=== PATIENT | female | born 1980 | race Caucasian/White ===

== ENCOUNTER 2021-03-26 02:35 | Day surgery (SDC) | payer BC, SELFPAY ==
[2021-03-18 12:25] VITALS: BMI 31.4
--- NOTE | 2021-03-18 12:39 | PC.NURSE ---
Report to the Outpatient Waiting Room, entrance under the green pavilion located off [facility], at time 1300 on date 03/26/21. OR Time: 1500. - You and your visitor will be asked a series of questions to screen for COVID 19 for your protection. - A mask is required within the hospital. - Only one visitor is allowed at this time. Patient visitors will be guided where to wait when not with patient. Preoperative COVID Testing Requirements: No COVID Test needed if: (proof is required; if not received patient will have Rapid Test prior to entry) - Patient has received COVID Vaccine at least 14 days prior to procedure date or - Patient has positive COVID test result within last 90 days of surgery date. COVID Test needed if above criteria is not met If not COVID vaccinated a COVID test must be conducted within 72 hours of surgery and patient is asked to isolate self from time of testing until procedure. You will go to the [facility] for your COVID testing. The [facility] is located at the corner of [address] [facility]. You will only be called if COVID results are positive and your surgeon may reschedule your elective surgery date. Patients may have clear liquids (water, carbonated beverages, clear teas, apple juice) until 3 hours prior to surgery with a maximum of 20 ounces. - No food from midnight until time of surgery - Infants may have breast milk until 4 hours before surgery, infant formula 6 hours prior to surgery. - Children will be allowed to drink immediately following surgery. If applicable, please bring a bottle or sippy cup to assist with drinking. Juice, water, soda, and popsicles are readily available. For infants on formula, please bring formula the day of surgery. Pacifiers are allowed. Take the following medications with a SIP of water the morning of surgery: BUPROPION, ESCITALOPRAM, XANAX (IF NEEDED) Medications to discontinue per physician: VITAMINS/SUPPLEMENTS Date to take last dose: 03/22/21 Please no make-up, nail spanish, hairspray, perfume, deodorant, or body powder the day of surgery. No jewelry (including any body piercings) or valuables the day of surgery, leave them at home. Please take a shower or bath the night before, or the morning of, surgery with an antibacterial soap. Wear comfortable, loose fitting clothing. Children are encouraged to wear pajamas. - Jewelry must be removed prior to entering the operating room. Rings and piercings that are not removed may be cut off. - The hospital will not accept responsibility for valuables. - Please leave all valuables, including medications, at home the day of surgery. If you are going home after surgery, a licensed truck driver must drive you home. - NO public transportation without another adult. - We recommend that an adult stay with you for 24 hours following discharge. - We also recommend that you do not drive, make important decision, drink alcoholic beverages, or take any drugs that were not prescribed by your health care provider for at least 24 hours after your discharge time. For Pediatric surgeries, we recommend two adults accompany the child home (only one inside the building at this time). Follow any additional instructions given to you from your surgeon. Telephone instructions given to FUNMI PIZANO and asked if any additional questions and then verbalized understanding. Patient advised to call surgeon office or pre surgery nurse liaison [phone] if any additional questions.
[2021-03-26] VITALS (10 sets, daily range): BP systolic 88–121; BP diastolic 39–70; PULSE 71–101; RESP 16–26; TEMP 37.2–37.6; O2SAT 95–100
[2021-03-26] MEDS: ACETAMINOPHEN 500 MG TABLET 1000 MG PO (13:49)
[2021-03-26] MEDS: LACTATED RINGERS 1,000 ML 30 ML IV CONT ×2 (14:12→15:39)
[2021-03-26] MEDS: KETOROLAC 15 MG/ML VIAL (*BKC) IV PUSH (14:13)
--- NOTE | 2021-03-26 14:19 | P.PNAN_ITS ---
Anes - Initial Pre Proc Eval Procedure: Operation Date: 03/26/21 14:45 Proposed Procedures p Laparoscopic Left Ovarian Oophorectomy with Bilateral Salpingectomy - Ashwin Burgos MD Date/Time: 03/26/21 14:19 Surgeon: Ashwin Burgos MD Pre Op Diagnosis: features of ovarian cancer, and ovarian cyst Patient Data Age: 41 Gender: F Height: 1.7 m Weight: 91.1 kg Last Vital Signs Temp 37.6 C H 03/26/21 14:15 Pulse 90 03/26/21 14:15 Resp 16 03/26/21 14:15 BP 121/70 03/26/21 14:15 Pulse Ox 100 03/26/21 14:15 Allergies Allergy/AdvReac Type Severity Reaction Status Date / Time zolpidem [From Ambien] Allergy Unknown Hallucinati Verified 03/26/21 13:44 ng propoxyphene AdvReac Unknown Vomiting Verified 03/26/21 13:44 [From Darvocet-N] Home Medications Medication Instructions Recorded Confirmed Type alprazolam 0.25 mg PO DAILY PRN 03/18/21 03/26/21 History bupropion HCl 150 mg PO DAILY 03/18/21 03/26/21 History escitalopram oxalate 20 mg PO DAILY 03/18/21 03/26/21 History multivitamin 1 tablet PO DAILY 03/18/21 03/26/21 History omega-3 fatty acids [Fish Oil] 1,000 mg PO DAILY 03/18/21 03/26/21 History Patient hx anesthesia problems: none Family hx anesthesia problems: none Results Review: All pre-operative results and documents have been reviewed as part of the pre-operative evaluation. [facility] Past Medical History Medical History (Updated 03/26/21 @ 14:22 by Julio C Rockwell MD) Depression Obesity Surgical History Surgical History (Updated 03/26/21 @ 14:22 by Julio C Rockwell MD) History of lumbar surgery Social History Social History Smoking packs per day: 0.5 Smoking cigarettes per day: 10.0 Years smoked: 7 Smoking pack-years: 3.50 Smoking status: Former smoker Tobacco type: cigarettes Smoking end date: 04/11/10 Alcohol intake: current Drinks per week: 1 Substance use: never Substance use type: does not use Living arrangements: with family Spiritual care concerns: No Anes - Eval Final PreProcedure Day of Procedure 03/26/21 14:19 Patient weight: obese Heart: regular rate and rhythm Lungs: clear to auscultation Airway: Mallampati scale class II Neurological: alert and oriented Last oral intake: >/= 8 hours ASA classification: II Emergent: no Anesthetic plan: proceed Anesthesia type and monitoring: general ETT and standard monitoring Results Review: All pre-operative results and documents have been reviewed as part of the pre-operative evaluation. Informed Consent: The patient's anesthetic plan and its attendant risks and benefits were discussed with the patient/family/POA. Questions were solicited and answers provided to the satisfaction of the patient/family/POA.
--- NOTE | 2021-03-26 14:26 | WPDHPUPDATE1 ---
History and Physical Update Update Date/Time: 03/26/21 14:26 History and Physical has been reviewed, including an updated exam of the patient. There are NO changes in the patient's condition. Risks, benefits, and alternatives have been discussed and questions answered. Patient agrees to proceed with procedure.
--- NOTE | 2021-03-26 15:30 | W.PM.PROC2 ---
Procedure Note - Detailed Date of Procedure 03/26/21 Pre-op Diagnosis features of ovarian cancer, and ovarian cyst Post-op Diagnosis same Procedure Performed Laparoscopic left oophorectomy and bilateral salpingectomy. Surgeon Ashwin Burgos MD Anesthesia general Indications Large left ovarian cyst, female sterilization Findings Large left ovarian cyst, otherwise normal pelvis with normal-appearing fallopian tubes uterus and posterior cul-de-sac Description of Procedure The patient was taken to the operating room. She was prepped and draped in the dorsal lithotomy position after induction general anesthesia. A 5 mm incision was made with a scalpel on the abdominal skin in the left upper quadrant of the abdomen. A 5 mm trocar was inserted into the intra-abdominal cavity under direct visualization the scope. In the same fashion an 11mm left lower quadrant trocar was inserted and a 5 mm infraumbilical trocar was inserted. The infundibulopelvic ligament on the left was isolated. It was cauterized and transected with LigaSure cautery. Moving along left pelvic sidewall the mesosalpinx was cauterized and transected lateral to the ovary and fallopian tube. In a stepwise fashion the mesosalpinx was cauterized transected around the ovary and fallopian tube to the cornual region the uterus. The suspensory ligament the ovaries cauterized transected as well. The fallopian tube at the uterine cornua was then transected and cauterized with LigaSure. The left tube and ovary was free and placed in endobag. It was taken out the left lower quadrant trocar site without leaking any of the cyst fluid. The right fallopian tube was removed. The mesosalpinx the round the fallopian tube was cauterized transected in a stepwise fashion toward the uterine cornua. There the tube was transected and cauterized with LigaSure cautery. The tubal segment the left lower quadrant trocar site. The pelvis was hemostatic. The pelvis was irrigated. The pneumoperitoneum was reduced. The trocars were removed. Skin was closed with subcuticular 4 micro. The patient's incisions were covered with Dermabond. She was taken recovery room in stable condition. Sponge lap and needle counts were correct x2. Estimated Blood Loss 10 Drains No Packing No Pathology yes Complications No immediate complications Condition stable Disposition same day
[2021-03-26] MEDS: fentaNYL CITRATE INJ (*CRX) 100 MCG/2 ML VIAL 25 MCG IV PUSH ×3 (16:02→16:30)
[2021-03-26] MEDS: ONDANSETRON INJ 4 MG/2 ML VIAL IV PUSH (16:11)
[2021-03-26] MEDS: oxyCODONE HCL (*CRX) 5 MG TAB IR PO (17:00)
== END 2021-03-26 17:52 | disposition home or self-care (01) ==
PROVIDERS: PCP Family Medicine; Visit Provider Obstetrics & Gynecology
PROC: (CPT 49320; principal; 2021-03-26 14:45)
DX: Z30.2 Encounter for sterilization (principal); D27.1 Benign neoplasm of left ovary; N73.6 Female pelvic peritoneal adhesions (postinfective); F32.9 Major depressive disorder, single episode, unspecified; E66.9 Obesity, unspecified; Z68.31 Body mass index [BMI] 31.0-31.9, adult; Z87.891 Personal history of nicotine dependence
CPT/HCPCS: 58661; 88302; 88305; A9270; J1100; J1885; J2250; J2405; J2704; J2710; J3010; J7030; J7120